=== PATIENT | male | born 1985 | race Caucasian/White ===

== ENCOUNTER 2017-10-11 05:29 | Day surgery (SDC) | payer BC ==
[~2017-10-11] VITALS: Ht 193 cm; Wt 176.9 kg
--- NOTE | ~2017-10-11 | O ---
[facility] [place] [address] OPERATIVE REPORT Name: GERRYAURELIANOTIFFANIE Shorty Room #: DEP [facility]..#: [id number] Admission: 10/11/17 Attend Phys: Scott Bright MD Discharge: 10/11/17 Date of : 89 Report #: [id number] THIS REPORT FOR: //name// CC: Scott Bright Carlos A Cleaning DATE OF SERVICE: 10/11/2017 PREOPERATIVE DIAGNOSES: 1. Left ankle instability. 2. Left ankle synovitis. 3. Left ankle nonunited distal fibular fracture. POSTOPERATIVE DIAGNOSES: 1. Left ankle instability. 2. Left ankle synovitis. 3. Left ankle nonunited distal fibular fracture. PROCEDURE: 1. Left ankle arthroscopic debridement with synovectomy. 2. Left ankle Brostrom Wood lateral ligament reconstruction. 3. Left ankle excision of distal fibular fracture nonunion fragment. SURGEON: Scott Bright MD. ANESTHESIA: General. ESTIMATED BLOOD LOSS: Minimal. DRAINS: None. TOURNIQUET TIME: One hour. CIRCUITS ENGINEER: Silvia Preciado. COMPLICATIONS: There were no complications. DESCRIPTION OF PROCEDURE: The patient was brought to the operating room where he was placed under general anesthesia. Once under adequate general anesthesia, his left lower extremity was placed into an arthroscopic thigh support. The left lower extremity was then prepped and draped in sterile manner. The extremity was elevated, exsanguinated, tourniquet placed 300 mmHg. A GUHL ankle distractor was then placed. An anterior medial and anterolateral arthroscopic portals were made in the usual fashion. Examination of the joint noted significant synovitis in the infrasyndesmotic region, and a synovectomy was performed in this area with the arthroscopic shaver. The chondral surfaces did [facility] [address] [place] [address] OPERATIVE REPORT Name: TIFFANIE LOPEZ Room #: DEP [facility] M.R.#: [id number] Admission: 10/11/17 Attend Phys: Scott Bright MD Discharge: 10/11/17 Date of : 89 Report #: [id number] appear clean, although there was some softening at the lateral mid talar dome noted. There were no chondral lesions noted. Anteriorly, there was synovitis as well, and a synovectomy was performed there with the arthroscopic shaver. Once complete, the wound was irrigated copiously, and the arthroscopic equipment was removed from the joint. The extremity was removed from the arthroscopic thigh support. A curvilinear incision just distal to the fibula was made to dissect down through soft tissue to the inferior extensor retinaculum, which was identified and tagged for later use. The anterior talofibular ligament and calcaneofibular ligament were then subsequently incised through the mid portions. The distal fibular nonunited fracture fragment was identified, and a kaibab blade was used to shell this out from the ATFL insertion on the fibula. The drill for the internal brace was then utilized on the talus and the distal fibula and then tapped subsequently the Arthrex internal brace was placed with the ankle held in the neutral position. Once in place, the remainder of the Brostrom repair was achieved utilizing 0 Ethibond to repair the anterior talofibular ligament and calcaneofibular ligament in a shortened position. The inferior extensor retinaculum was then advanced to the periosteum of the fibula as well with 0 Ethibond. Once complete, the wound was irrigated copiously and closed with 2-0 Vicryl in subcutaneous tissues and lizabeth for the skin. An excellent repair has been achieved with excellent stability. The wound was dressed with Xeroform, 4 x 4s, and a sterile soft compressive dressing with a short leg cast and eversion was placed. Tourniquet was let down at 1 hour. Toes were pink and warm with good capillary refill. There were no complications from the procedure. The patient tolerated the procedure well and went to the recovery room without incident. <ELECTRONICALLY SIGNED> By: Scott Bright MD 10/23/17 1028 [id number] Scott Bright MD /nt
[2017-10-11 11:20] VITALS: BP 155/88
[2017-10-11] MEDS ORDERED: ASA5UEC PO (13:45)
[2017-10-11] MEDS ORDERED: PERCOCET 7.5-31 EACH PO (13:45)
[2017-10-11 15:12] VITALS: BP 155/88
== END 2017-10-11 15:45 | disposition home or self-care (01) ==
LOC: TBA 05:29 → OR 05:29
DX: S82.402K Unspecified fracture of shaft of left fibula, subsequent encounter for closed fracture with nonunion (principal); X58.XXXD Exposure to other specified factors, subsequent encounter; S83.422A Sprain of lateral collateral ligament of left knee, initial encounter; Z98.890 Other specified postprocedural states
CPT/HCPCS: 50010; 50101; 50386; 51038; 51412; 51647; 52120; 55430; 56524; 56529; 57091; 62110; 62900; 70005

== ENCOUNTER 2021-01-23 10:56 | Emergency (ER) | payer OTHER ==
[~2021-01-23] VITALS: Ht 190.5 cm; Wt 176.0 kg
[~2021-01-23 10:56] MED LIST: ASA5UEC PO; PERCOCET 7.5-31 EACH PO
[2021-01-23 12:16] LABS: URINE BILIRUBIN NEGATIVE (Negative); URINE BLOOD NEGATIVE (Negative); URINE CLARITY CLEAR; URINE COLOR YELLOW; URINE GLUCOSE-RANDOM* NEGATIVE (Negative); URINE KETONES NEGATIVE (Negative); URINE LEUKOCYTES-REFLEX NEGATIVE (Negative); URINE NITRITE-REFLEX NEGATIVE (Negative); URINE PROTEIN (DIPSTICK) NEGATIVE (Negative); URINE SPECIFIC GRAVITY >= 1.030 (1.005-1.035); URINE UROBILINOGEN 0.2 E.U./dl (0.2-1.0)
[2021-01-23 12:50] VITALS: BP 121/77
== END 2021-01-23 13:35 | disposition home or self-care (01) ==
LOC: ER 10:56
PROVIDERS: Nurse Practitioner
DX: S39.012A Strain of muscle, fascia and tendon of lower back, initial encounter (principal); Z98.890 Other specified postprocedural states; X50.1XXA Overexertion from prolonged static or awkward postures, initial encounter; Y93.89 Activity, other specified; Y92.89 Other specified places as the place of occurrence of the external cause; Y99.9 Unspecified external cause status

== ENCOUNTER 2021-04-03 08:41 | Emergency (ER) | payer OTHER ==
[~2021-04-03] VITALS: Ht 190.5 cm; Wt 181.4 kg
[2021-04-03] MEDS ORDERED: SPIRONOLACTONE100 M1 PO (09:11)
[2021-04-03] MEDS ORDERED: PRINIVIL20 MG PO (09:11)
[2021-04-03] MEDS ORDERED: DEPO-ESTRAD5 MG/1 ML IM (09:11)
[2021-04-03 13:03] VITALS: BP 148/80
== END 2021-04-03 13:03 | disposition home or self-care (01) ==
LOC: ER 08:41
DX: S61.412A Laceration without foreign body of left hand, initial encounter (principal); W45.8XXA Other foreign body or object entering through skin, initial encounter; Y93.89 Activity, other specified; Y92.89 Other specified places as the place of occurrence of the external cause; Y99.8 Other external cause status